=== PATIENT | male | born 2000 | race Caucasian/White ===

== ENCOUNTER 2024-12-03 22:21 | Emergency (ER) | payer OTHER ==
[~2024-12-03] VITALS: Ht 172.7 cm; Wt 73.5 kg
[2024-12-03] MEDS: acetaMINOPHEN 500 MG TABLET PO ONE (22:56)
--- NOTE | 2024-12-03 23:22 | HMCIMG ---
CT HEAD/BRAIN W/O CONTRAST HISTORY: Trauma COMPARISON: None TECHNIQUE: Multiple sequential axial images of the head were obtained from the base of the skull through vertex. Patient was not given contrast through intravenous route. FINDINGS: The ventricles and extraventricular CSF spaces are nondilated for patient's age. There is no midline shift, mass effect or herniation. No acute intracranial bleed is seen. Visualized portion of the paranasal sinuses are grossly within normal limits. IMPRESSION: 1. No acute intracranial bleed is seen. CT was performed with one or more following dose reduction techniques: automated exposure control, adjustment of the mA and kv according to patient's size, or use of a iterative reconstruction technique.
[2024-12-03 23:44] VITALS: BP 128/76; PULSE 70; RESP 16; TEMP 98.1; O2SAT 98
--- NOTE | 2024-12-03 23:49 | ERN ---
ED Note History of Present Illness Stated Complaint: HIT WITH SOFTBALL Chief Complaint: Head Injury Time Seen by MD: 22:34 Time Seen by Midlevel: 22:35 Dictation: 24-year-old male who presents to the emergency department due to concern of having been struck with a baseball to the left side of the head along the temporal area. Initially, he rated the pain as a 7/10. At this time, he rates the pain as a 6/10. Patient states that he is concerned due to having filled days when this occurred. He states that the area is very tender upon palpation. Patient states that he is concerned over having the small artery that runs around the area of point of impact. Upon initial evaluation, the patient presents mildly uncomfortable looking. 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: None Past Medical History Past Medical History: No Pertinent History Surgical History: Appendectomy PSYCH History: no pertinent psych hx RN Note Reviewed/Agreed w/PFSH: Yes Review of System Dictation Neuro: Headache Initial Vital Sign VS Vital Signs Date Time Temp Pulse Resp B/P (MAP) Pulse Ox O2 Delivery O2 Flow Rate FiO2 12/03/24 22:22 98.1 74 16 130/84 98 Room Air 12/03/24 22:31 0 21 Physical Exam Dictation General: awake, alert, NAD Head/Face: Tenderness and swelling to the left temporal area Eyes: PERRL, EOMI ENT: Oral mucosa moist Neck: Trachea midline, supple Cardiovascular: RRR, no edema Respiratory: Symmetrical, non-labored Abdomen: Soft, non-tender, non-distended, no guarding. Skin: Warm, dry, good turgor, no rash MS/Extremity: Pulses equal, no cyanosis, neurovascular intact, FROM Neuro: COAx4, GCS 15, steady gait, Psych: Normal behavior, mood, and affect normal Results (Laboratory/Radiology) CT Scan Comment: CT of the head without contrast with no findings concerning for a bleed. ED Course ED Course Orders Procedure Category Date Status Time Ct Head/Brain W/O CT 12/03/24 Resulted Contrast 22:50 Acetaminophen 500mg PHA 12/03/24 Complete Tab (Tylenol 500mg T 23:00 Current Medications Medications (Trade) Dose Ordered Sig/Brian Route PRN Reason Start Time Stop Time Status Last Admin Dose Admin Acetaminophen (TYLenol 500MG TAB) 1,000 mg ONCE ONCE PO 12/03/24 23:00 12/03/24 23:01 DC 12/03/24 22:56 Vital Signs Date Time Temp Pulse Resp B/P (MAP) Pulse Ox O2 Delivery O2 Flow Rate FiO2 12/03/24 23:44 98.1 70 16 128/76 98 Room Air* 0 21 12/03/24 22:31 98.1 74 16 130/84 98 Room Air* 0 21 12/03/24 22:22 98.1 74 16 130/84 98 Room Air Medical Decision Making MDM MDM: Differential diagnosis: Closed head injury, brain contusion, epidural bleed, skull fracture. Rationale: Tests considered and ordered secondary to shared decision making include: Previous outside records reviewed: Old ER visits. Risk of complication and/or morbidity or mortality of patient management: None Medications-Per medication reconciliation Need for hospitalization: Patient does not meet criteria for hospitalization. Need for emergency major/minor surgery: No There are no social concerns with this patient. Prescription drug management Prescriptions will include symptomatic care Patient's prior external medical records from other ER visits were reviewed by me as indicated. Prior testing and results from previous visits were reviewed. Prior tests were taken into account with medical decision making and resource utilization, independent historian/historians were used to obtain complete medical history. I independently interpreted the test that were performed, results were reviewed by me and considered findings on radiology if ordered. Medical management and examination interpretation discussions were had by me with other qualified healthcare professionals as indicated for the patient's care. DX & DISP Disposition: Discharge Departure Impression: Primary Impression: Closed head injury without loss of consciousness Condition: Stable Referrals: SELF,REFERRAL (PCP) BREE SHELTON December 03, 2024 23:48
== END 2024-12-04 02:24 | disposition home or self-care (01) ==
LOC: EDH 22:21
DX: S09.90XA Unspecified injury of head, initial encounter (principal); Z90.49 Acquired absence of other specified parts of digestive tract; W21.07XA Struck by softball, initial encounter; Y93.89 Activity, other specified; Y92.89 Other specified places as the place of occurrence of the external cause; Y99.8 Other external cause status
CPT/HCPCS: 70450; 99284